=== PATIENT | male | born 1930 | race Caucasian/White ===

== ENCOUNTER → 2021-03-08 | Outpatient (CLI) | payer OTHER, MEDICARE | LOC: MRI 09:15 | PROVIDERS: ATTEND Family Medicine | DX: I67.82 Cerebral ischemia (principal); G93.89 Other specified disorders of brain; S09.90XS Unspecified injury of head, sequela; J34.89 Other specified disorders of nose and nasal sinuses; R55 Syncope and collapse; X58.XXXS Exposure to other specified factors, sequela ==

== ENCOUNTER → 2021-03-12 | Outpatient (CLI) | payer OTHER, MEDICARE | LOC: SJCVC 13:40 | PROVIDERS: ATTEND Internal Medicine | DX: R94.31 Abnormal electrocardiogram [ECG] [EKG] (principal); I48.0 Paroxysmal atrial fibrillation; I95.1 Orthostatic hypotension; I10 Essential (primary) hypertension; E78.5 Hyperlipidemia, unspecified; I67.1 Cerebral aneurysm, nonruptured; Z87.891 Personal history of nicotine dependence; Z79.899 Other long term (current) drug therapy ==